=== PATIENT | female | born 1975 | race Caucasian/White ===

== ENCOUNTER 2017-11-25 09:20 | Emergency (ER) | payer SELFPAY, BC | END 2017-11-25 12:40 | disposition left against medical advice (07) | LOC: FTE 12:40 → E/R 09:20 → FTE 12:40 | DX: Z53.21 Procedure and treatment not carried out due to patient leaving prior to being seen by health care provider (principal) ==

== ENCOUNTER 2018-11-09 19:35 | Emergency (ER) | payer BC | END 2018-11-09 21:18 | disposition home or self-care (01) | LOC: FTE 19:35 | DX: N89.8 Other specified noninflammatory disorders of vagina (principal) | CPT/HCPCS: 76830; 76856; 99284 ==

== ENCOUNTER 2018-11-19 14:13 | Emergency (ER) | payer BC ==
[2018-11-19] MEDS: DEXAMETHASONE 10 MG/ML 1 ML INJ IM (15:28)
== END 2018-11-19 16:16 | disposition home or self-care (01) ==
LOC: FTE 14:13
DX: J04.0 Acute laryngitis (principal)
CPT/HCPCS: 96372; 99284-25

== ENCOUNTER 2019-05-13 21:16 | Emergency (ER) | payer SELFPAY, BC | END 2019-05-14 01:13 | disposition left against medical advice (07) | LOC: FTE 21:16 | DX: Z53.21 Procedure and treatment not carried out due to patient leaving prior to being seen by health care provider (principal) ==